=== PATIENT | male | born 1995 | race African-American/Black ===

== ENCOUNTER 2024-09-22 22:10 | Emergency (ER) | payer SELFPAY ==
[~2024-09-22] VITALS: Ht 175.3 cm; Wt 73.0 kg
[2024-09-22 22:22] VITALS: TEMP 37; O2SAT 100
[2024-09-23] MEDS: ACETAMINOPHEN 500MG TABLET PO ONE (00:34)
[2024-09-23] MEDS ORDERED: NAPR-1176 MT (01:52)
[2024-09-23 02:16] VITALS: BP 111/60; PULSE 80; RESP 12; O2SAT 97
== END 2024-09-23 02:20 | disposition home or self-care (01) ==
LOC: ER 22:10
DX: S05.32XA Ocular laceration without prolapse or loss of intraocular tissue, left eye, initial encounter (principal); Z79.899 Other long term (current) drug therapy; Z79.1 Long term (current) use of non-steroidal anti-inflammatories (NSAID); Y04.0XXA Assault by unarmed brawl or fight, initial encounter; Y93.89 Activity, other specified; Y92.89 Other specified places as the place of occurrence of the external cause; Y99.8 Other external cause status
CPT/HCPCS: 99283

== ENCOUNTER 2024-11-29 18:57 | Emergency (ER) | payer OTHER ==
[~2024-11-29] VITALS: Ht 172.7 cm; Wt 76.0 kg
[~2024-11-29 18:57] MED LIST: NAPR-1176 MT
[2024-11-29 18:59] VITALS: O2SAT 97
[2024-11-29] MEDS: TETANUS, DIPHTHERIA, PERTUSSIS VAC/PF 0.5ML (>10YR OLD) IM ONE (20:06)
[2024-11-29 20:25] VITALS: BP 125/74; PULSE 116; RESP 20; TEMP 37.1; O2SAT 97
== END 2024-11-29 20:35 ==
LOC: ER 18:57
DX: R45.1 Restlessness and agitation (principal); R07.9 Chest pain, unspecified; Z02.89 Encounter for other administrative examinations
CPT/HCPCS: 90471; 90715; 93005; 99283